=== PATIENT | male | born 1950 | race Caucasian/White ===

== ENCOUNTER → 2017-09-21 | Outpatient (CLI) | payer OTHER ==
[~2017-09-21] MED LIST: ACTOS45 MG PO; ALBUTEROL0.09 MG/A2 IH; AMARYL4 MG; HYDROCODONE BIT1 T11 PO; METFORMIN HCL500 MG PO; METFORMIN1000 MG; PERCOCET 325 MG1 TA5; PERCOCET 325 MG1 TA6 PO; SENNA5.6 MG PO; VICODIN 5/500 505 MG PO
== END | disposition home or self-care (01) ==
LOC: RAD 16:10
DX: J18.8 Other pneumonia, unspecified organism (principal); R06.02 Shortness of breath; R09.81 Nasal congestion; R07.89 Other chest pain; F17.200 Nicotine dependence, unspecified, uncomplicated

== ENCOUNTER 2017-09-25 12:08 | Emergency (ER) | payer OTHER ==
[~2017-09-25] VITALS: Ht 160 cm; Wt 79.8 kg
[2017-09-25 13:13] LABS: BASO % 0.2 % (0.0-1.0); EOS # 0.1 10*3/uL (0.0-0.4); EOS % 1.6 % (1.0-4.0); HEMATOCRIT 29.6 % (42.0-52.0); HEMOGLOBIN 9.5 g/dl (14.0-18.0); LYMPH # 0.9 10*3/uL (1.3-4.4); LYMPH % 14.4 % (27.0-41.0); MEAN CELL VOLUME 91.9 fl (80.0-94.0); MEAN CORPUSCULAR HGB 29.5 pg (27.0-31.0); MEAN CORPUSCULAR HGB CONC 32.1 g/dl (33.0-37.0); MEAN PLATELET VOLUME 9.4 fl (9.6-12.3); MONO # 0.5 10*3/uL (0.1-1.0); MONO % 8.2 % (3.0-9.0); NEUT # 4.7 10*3/uL (2.3-7.9); PLATELET COUNT AUTOMATED 253 10*3/uL (130-400); RED BLOOD COUNT 3.22 10*6/uL (4.50-5.90); WHITE BLOOD COUNT 6.2 10*3/uL (4.8-10.8)
[2017-09-25 13:30] LABS: ALBUMIN 2.9 gm/dl (3.1-4.5); CREATININE 2.18 mg/dL (0.70-1.30); POTASSIUM 5.3 mmol/L (3.5-5.1); TOTAL PROTEIN 7.5 gm/dL (6.4-8.2)
== END 2017-09-25 21:20 | disposition short-term general hospital (02) ==
LOC: ED 12:08
PROVIDERS: Emergency Medicine
DX: S50.311A Abrasion of right elbow, initial encounter (principal); S60.811A Abrasion of right wrist, initial encounter; S80.212A Abrasion, left knee, initial encounter; S00.31XA Abrasion of nose, initial encounter; R91.8 Other nonspecific abnormal finding of lung field; R60.0 Localized edema; F17.200 Nicotine dependence, unspecified, uncomplicated; Z95.5 Presence of coronary angioplasty implant and graft; Z79.899 Other long term (current) drug therapy; Z87.01 Personal history of pneumonia (recurrent); W19.XXXA Unspecified fall, initial encounter; Y93.89 Activity, other specified; Y92.89 Other specified places as the place of occurrence of the external cause; Y99.9 Unspecified external cause status

== ENCOUNTER → 2017-11-10 | Outpatient (CLI) | payer OTHER | END | disposition home or self-care (01) | LOC: WOUNDCARE 14:02 | DX: E11.622 Type 2 diabetes mellitus with other skin ulcer (principal); L97.821 Non-pressure chronic ulcer of other part of left lower leg limited to breakdown of skin; I87.312 Chronic venous hypertension (idiopathic) with ulcer of left lower extremity; C34.82 Malignant neoplasm of overlapping sites of left bronchus and lung; J44.9 Chronic obstructive pulmonary disease, unspecified; E78.5 Hyperlipidemia, unspecified; G47.00 Insomnia, unspecified; Z87.891 Personal history of nicotine dependence; Z95.5 Presence of coronary angioplasty implant and graft ==

== ENCOUNTER → 2017-11-17 | Outpatient (CLI) | payer OTHER | END | disposition home or self-care (01) | LOC: US 11-13 10:30 | DX: S81.802D Unspecified open wound, left lower leg, subsequent encounter (principal); C34.82 Malignant neoplasm of overlapping sites of left bronchus and lung; E11.622 Type 2 diabetes mellitus with other skin ulcer; I87.312 Chronic venous hypertension (idiopathic) with ulcer of left lower extremity; X58.XXXD Exposure to other specified factors, subsequent encounter ==

== ENCOUNTER → 2017-11-26 | Outpatient (CLI) | payer OTHER | END | disposition home or self-care (01) | LOC: WOUNDCARE 00:42 | DX: E11.622 Type 2 diabetes mellitus with other skin ulcer (principal); I87.312 Chronic venous hypertension (idiopathic) with ulcer of left lower extremity; L97.821 Non-pressure chronic ulcer of other part of left lower leg limited to breakdown of skin; C34.82 Malignant neoplasm of overlapping sites of left bronchus and lung; J44.9 Chronic obstructive pulmonary disease, unspecified; E78.5 Hyperlipidemia, unspecified; G47.00 Insomnia, unspecified; Z87.891 Personal history of nicotine dependence; Z95.5 Presence of coronary angioplasty implant and graft ==

== ENCOUNTER → 2017-12-03 | Outpatient (CLI) | payer MEDICAID ==
[~2017-12-03] MED LIST changes: +ACTOS45 M1 PO; +BREO ELLIPTA 11 EACH INH; +FENOFIBRATE130 M1 PO; +FLOMAX0.4 MG PO; +GOOD NEIGHBOR L10 MG PO; +HYDR25T PO; +LASIX40 MG PO; +LIPITOR20 MG PO; +METFORMIN1000 MG PO; +METOPROLOL SUCC50 M2 PO; +NICODERM CQ1 EACH T; +NICODERM CQ1 EACH TD; +NORCO 5-325 TA1 EACH PO; +PAROXETINE HCL20 MG PO; +PROVENTIL HFA6.7 GM IH; +PROVENTIL HFA6.7 GM INH; +ROBAFEN100 MG/51 PO; +SPIRIVA18 MCG PO; +VITAMIN D5000 UNIT PO; +ZESTORETIC 20-1 EACH PO
== END | disposition home or self-care (01) ==
LOC: WOUNDCARE 03:39
DX: I87.312 Chronic venous hypertension (idiopathic) with ulcer of left lower extremity (principal); E11.622 Type 2 diabetes mellitus with other skin ulcer; L97.821 Non-pressure chronic ulcer of other part of left lower leg limited to breakdown of skin; E78.5 Hyperlipidemia, unspecified; E43 Unspecified severe protein-calorie malnutrition; J44.9 Chronic obstructive pulmonary disease, unspecified; Z87.891 Personal history of nicotine dependence; Z85.118 Personal history of other malignant neoplasm of bronchus and lung; Z68.31 Body mass index [BMI] 31.0-31.9, adult

== ENCOUNTER → 2017-12-10 | Outpatient (CLI) | payer OTHER ==
[~2017-12-10] MED LIST changes: -ACTOS45 M1 PO; -BREO ELLIPTA 11 EACH INH; -FENOFIBRATE130 M1 PO; -FLOMAX0.4 MG PO; -GOOD NEIGHBOR L10 MG PO; -HYDR25T PO; -LASIX40 MG PO; -LIPITOR20 MG PO; -METFORMIN1000 MG PO; -METOPROLOL SUCC50 M2 PO; -NICODERM CQ1 EACH T; -NICODERM CQ1 EACH TD; -NORCO 5-325 TA1 EACH PO; -PAROXETINE HCL20 MG PO; -PROVENTIL HFA6.7 GM IH; -PROVENTIL HFA6.7 GM INH; -ROBAFEN100 MG/51 PO; -SPIRIVA18 MCG PO; -VITAMIN D5000 UNIT PO; -ZESTORETIC 20-1 EACH PO
== END | disposition home or self-care (01) ==
LOC: WOUNDCARE 00:30
DX: I87.312 Chronic venous hypertension (idiopathic) with ulcer of left lower extremity (principal); E11.622 Type 2 diabetes mellitus with other skin ulcer; L97.821 Non-pressure chronic ulcer of other part of left lower leg limited to breakdown of skin; J44.9 Chronic obstructive pulmonary disease, unspecified; E78.5 Hyperlipidemia, unspecified; Z85.118 Personal history of other malignant neoplasm of bronchus and lung; Z87.891 Personal history of nicotine dependence

== ENCOUNTER 2017-12-15 10:55 | Inpatient (IN) | payer MEDICAID ==
[~2017-12-15] VITALS: Ht 160 cm; Wt 75.8 kg
--- NOTE | ~2017-12-15 | PR ---
[place], [place] PROGRESS NOTE NAME: JONATHON BECERRA [facility] #: [id number] UNIT #: [id number] ROOM: 406 DOCTOR: ERICH KIRBY MD,KENNETH BIRTHDATE: [birth year] DOS: 12/18/2017 SUBJECTIVE: He has been comfortably sitting on the chair this morning. The patient denies any coughing, sputum expectoration, or chest pain. Denies symptoms of hemoptysis. OBJECTIVE: VITAL SIGNS: Normal temperature, respiratory rate 22, heart rate 120-113, blood pressure 129/58, pulse oxygen saturation on 2 liters 92% saturation. HEENT: Showed no new change. NECK: Supple. CARDIOVASCULAR: S1, S2 is audible. LUNGS: Noted without any wheeze or crackles. ABDOMEN: Soft, nontender. LABORATORY DATA: Culture of the sputum showed normal blanca. BMP: Glucose 250. BUN and creatinine were normal. Calcium is still elevated, the patient 10.6. IMPRESSION: Resolving hypercalcemia, paraneoplastic syndrome, lung cancer with hemoptysis, tracheobronchitis. The patient was also noted. PLAN OF MANAGEMENT: Continuation of the oxygen supplementation, bronchodilators and aggressive medical management hypercalcemia. Other supportive therapy, plan of management and care. Usual medical management and other treatments. KENNETH JUNG MD CM:PNTRANS [id number] KENNETH KIRBY MD 12/24/17 0855 interface
--- NOTE | ~2017-12-15 | PR ---
[place], [place] PROGRESS NOTE NAME: JONATHON BECERRA [facility] #: [id number] UNIT #: [id number] ROOM: 406 DOCTOR: ERICH KIRBY MD,KENNETH BIRTHDATE: [birth year] DOS: 12/17/2017 SUBJECTIVE: The patient has been noted comfortable at this time. He has a bronchoscopy completed yesterday for patient known with already diagnosed cancer of the lung. The patient which are described to be metastatic. He has not reported any further episodes of hemoptysis. Denies symptoms of chest pain. OBJECTIVE: VITAL SIGNS: For the patient, which was recorded showed the temperature is normal, respiratory rate of 18, heart rate 116, blood pressure is 128/66, pulse oxygen saturation on 2 liters nasal cannula 99% saturation. HEENT: No acute change. NECK: Supple. CARDIOVASCULAR: S1, S2 is audible. LUNGS: The patient was noted without any wheezing or crackles. Decreased breath sounds on the left lung. ABDOMEN: Soft, nontender. EXTREMITIES: Without any acute edema. LABORATORY DATA: Culture of the bronchial washing preliminary noted normal blanca. Gram stain, moderate white blood cell, few gram-positive cocci in pairs and clusters. CBC today, hemoglobin 8.8, hematocrit 28.5, platelet count was normal. IMPRESSION: The patient with metastatic cancer that has been known for this patient with paraneoplastic syndrome, hypercalcemia. Status post bronchoscopy for hemoptysis assessment no active bleeding was noted. PLAN OF TREATMENT: No changes in the therapy for the patient at the present time. Continuation of current previous treatment. The patient as in progress. Usual care, other supportive plan of management and treatments. KENNETH JUNG MD CM:PNTRANS [id number] KENNETH KIRBY MD 12/24/17 0854 interface
--- NOTE | ~2017-12-15 | CON ---
[place], [place] REPORT OF CONSULTATION [id number] UNIT #: [id number] ROOM: 406 DOCTOR: ERICH KIRBY MD,KENNETH BIRTHDATE: [birth year] DOS: 12/16/2017 REQUESTING PHYSICIAN: Shahzad Avitia MD REASON FOR CONSULTATION: To assess the patient for current diagnosis of lung cancer stage 4 with hemoptysis. The patient is noted to be an extremely poor historian with history noted quite limited at this time. Some of the history has reviewed current documentation done by the other physicians assessment and notes. HISTORY OF PRESENT ILLNESS: The patient presented to the Emergency Room, hospitalized on 12/15/2017 as the patient was reported having symptoms of hemoptysis at home intermittently. The symptoms has been noted with gradual increase for this patient and getting worse. The patient denies any symptoms of chest tightness, but complained of chest pain and also noted significant shortness of breath. The patient stated that he has coughed up couple of times blood. The patient is coughing up blood in small quantity. He was also noted symptoms of wheezing. The patient was also noted chest pain, which are described in the left side of the chest intermittently, moderate severity without radiation, described to be sharp at times. REVIEW OF SYSTEMS: PSYCHIATRIC: Very limited for the patient was completed. CONSTITUTIONAL: He does complain of fatigue without any symptoms of fever or chills. EYES: Denies any burning, redness, or discharge. ENT: Sore throat, otalgia, postnasal drainage, but noted with hoarseness. CARDIOVASCULAR: Denies any anginal pain, edema, pain or palpitation. GASTROINTESTINAL: Denies dysphagia, nausea, vomiting, diarrhea, abdominal pain, hematemesis, melena, hematochezia. Has been noted with a recent weight loss most likely related to malignancy, but could not quantify the exact weight loss. GENITOURINARY: No dysuria, suprapubic pain, or hematuria. MUSCULOSKELETAL: No acute joint pain, redness, or tenderness. SKIN: Denies any abnormal lesions or rashes. CENTRAL NERVOUS SYSTEM: The patient denies any dizziness, headache, diplopia, syncopal episode, or seizures. Remaining systems were reviewed with the patient, they were noted all negative. PAST MEDICAL HISTORY: 1. Known with history of diagnosis of metastatic lung cancer reported by the patient, but the details were unknown. Stated diagnosis was made in [facility] what described by the patient is fibrobronchoscopy. 2. Gastroesophageal reflux disease. 3. Hyperlipidemia. 4. Osteoarthritis. 5. Type 2 diabetes mellitus. 6. Nephrolithiasis. [place], [place] REPORT OF CONSULTATION NAME: JONATHON BECERRA UNIT #: [id number] ROOM: 406 DOCTOR: KENNETH RIVERA MD BIRTHDATE: [birth year] PAST SURGICAL HISTORY: Most likely is reported as fiberoptic bronchoscopy for the patient done at [facility]. FAMILY HISTORY: Both parents have been and history was unknown by the patient. MEDICATIONS: Reported as albuterol, Proventil HFA, atorvastatin, Breo Ellipta, Lasix, [place], lisinopril, hydrochlorothiazide, loratadine, metformin, nicotine patches, Actos, and Flomax. DRUG ALLERGIES: No known drug allergies. PHYSICAL EXAMINATION: GENERAL: This is a 67-year-old while male noted with obvious mild hoarseness at rest with mild shortness of breath at rest was also noted. The patient was resting and lying in the bed. Height of 5 feet 3 inches, weight of 167 pounds, BMI 29.5. VITAL SIGNS: For the patient which has been recorded showed the temperature noted as normal, respiratory rate of 18-22, heart rate of 110-103, blood pressure 127/54 to 116/40. Pulse oxygen saturation of the patient on 2 liter nasal cannula 95% saturation. HEENT: Examination shows head was atraumatic. Eyes nonicterus. NECK: Supple. CARDIOVASCULAR: S1, S2 audible without any tachycardia and added sounds. LUNGS: Moderate severe reduced breath sounds noted in the lungs bilaterally with scattered expiratory wheezing without any crackles. ABDOMEN: Soft and nontender. Bowel sounds present. EXTREMITIES: Without any edema, clubbing, or cyanosis. VISIBLE SKIN: No lesions or rashes. MUSCULOSKELETAL: Without any acute deformities. CENTRAL NERVOUS SYSTEM: Cranial nerves 2-12 intact. MUSCULOSKELETAL: No focal deficit. LABORATORY DATA: CBC was done yesterday; hemoglobin 9.1, hematocrit 29.0, WBC count normal, and platelet count was normal. Lactic acid 2.1. The PT and PTT was noted as normal. CMP yesterday; BUN 18, creatinine 1.44. Sodium 135. BNP was noted 206. ESR was noted at 130 yesterday. Lactic acid fall up to 2.0. CBC of the patient this morning; hemoglobin 8.4, hematocrit 27.7, and platelet count was normal. BMP of the patient this morning; BUN 20 and creatinine 1.55. Calcium elevated at 11.5. RADIOLOGIC DATA: The review of the chest x-ray of the patient, enlarging mass for this patient was noted as compared to previous study on 09/25/2017. Chest x-ray review, currently noted for this patient 9 cm in the craniocaudal dimension in the left side. The patient had CT scan of the chest, which was done with contrast reviewed shows evidence of 8.5 x 6.5 cm mass, which increased patient from previous size of 5.2 x 5.8 cm in size. Extension was noted in the left lateral chest wall erosion of the left 4th, 5th and 6th rib. The mass was also abutting the left hilar area of the patient with area of atelectasis in the left lower lobe was also noted. Small left-sided pleural fluid was seen. [place], [place] REPORT OF CONSULTATION NAME: JONATHON BECERRA UNIT #: [id number] ROOM: 406 [facility] [birth year] IMPRESSION: 1. The patient currently admitted to the hospital with hemoptysis, most likely related to endobronchial lesion for the current lung cancer with bleeding possibly originating from the left side of the lung for this patient endobronchial lesion very likely resulting in intermittent hemoptysis. 2. Metastatic cancer of the patient. 3. Paraneoplastic syndrome and hypercalcemia. Hypercalcemia most commonly seen for the patient with squamous cell and/or small cell cancer for the patient metastatic malignancy. 4. Acute kidney injury secondary to hypercalcemia and excessive diuresis. 5. Pain for the patient secondary to involvement of the rib with malignant process of the patient's lung cancer. 6. The patient with ongoing acute exacerbation of chronic obstructive pulmonary disease as well. The patient with history of allergic rhinitis, hypertension, and 7. type 2 diabetes mellitus. 8. History of essential hypertension. PLAN OF MANAGEMENT: Aggressive hydration for the patient for the hypercalcemia to be done. The patient has been ordered the bronchoscopy to be done today. The risk and benefits of procedure have been discussed in detail with the patient and he accepted that. He has already made n.p.o. past midnight for the procedure to be done today. Bronchodilators administration, use of intravenous steroids to be added to the treatment for the patient to help improve the current wheezing and exacerbation of COPD. I do not believe that the patient has any postobstructive pneumonia or bronchitis which is acute cannot be completely excluded. Diagnostic bronchoscopy today for the patient assessing endobronchial lesion and manage hemoptysis according to the assessment. Solu-Medrol for the patient will be added to the treatment. Continue adequate pain control. The patient was also planned for MediPort insertion for use of the chemotherapy. Monitoring of the calcium level for the patient to be continued. Free ionized calcium level will be ordered to be done to exactly assess the patient's calcium level. Other supportive therapy, plan and management to be continued. Usual care. Other additional treatment changes to be made for the patient based on progression of the illness. Bronchodilator will be given every 4 hours for the bronchospasm management. Additional treatment changes continued to be made based on the progression of the illness during recurrent hospitalization. The bronchial washing will be also sent for the patient cultures as well. [place], [place] REPORT OF CONSULTATION NAME: JONATHON BECERRA [facility] UNIT #: [id number] ROOM: [facility] DOCTOR: KENNETH RIVERA MD BIRTHDATE: [birth year] KENNETH JUNG MD CM:CONSTR:REPORT OF CONSULTATION 1353 12/22/17 8388 interface
--- NOTE | ~2017-12-15 | PROC NOTE ---
[place], [place] PROCEDURE NOTE NAME: JONATHON BECERRA UNIT #: [id number] ROOM: 406 DOCTOR: ERICH KIRBY MD,KENNETH BIRTHDATE: [birth year] DOS: 12/16/2017 PREOPERATIVE DIAGNOSIS: Acute hemoptysis current known lung cancer, which was untreated. POSTOPERATIVE DIAGNOSIS: No active bleeding was noted nor hemoptysis evidence, however, the patient noted with large endobronchial lesion in the left upper lobe. PROCEDURE DESCRIPTION: Informed consent obtained for the patient. The patient brought to the OR and placed in supine. Conscious sedation was administered by the Anesthesia Department. After achieving proper sedation, airway introduced into the mouth. Bronchoscope advanced into the airway into laryngeal area. Epiglottis and vocal cord were seen. Vocal cord movement noted with a possibility of paralysis for the patient left vocal cord. The bronchoscope and vocal cord and tracheal lumen. Tracheal lumen was noted with a small to moderate mucus secretion, which was suctioned out with the help of normal saline wash, sent for culture. The lito was noted as well. Right upper, right middle and right lower lobe bronchial opening noted moderate mucus impaction of normal saline wash. Left main stem bronchus noted patent. Complete occlusion almost of left upper lung and lingular opening was noted. Endobronchial lesions were noted. Mucosa appeared to be friable. A 1:10,000 epinephrine was lavaged in that area to prevent any bleeding. Procedure well tolerated by the patient without any complication. Postoperative finding will be discussed with the patient once the patient recovers from effects of acute sedation. KENNETH JUNG MD CM:PROCNOTE:PROCEDURE NOTE 1355 1950 KENNETH KIRBY MD
--- NOTE | ~2017-12-15 | PR ---
[place], [place] PROGRESS NOTE [id number] #: [id number] ROOM: 406 DOCTOR: ROSALINDA AVENDANO MD BIRTHDATE: [birth year] DOS: 12/18/2017 SUBJECTIVE: The patient is doing better. He got a PICC line placed. His calcium has gone down. Mediport attempt was failed. REVIEW OF SYSTEMS HEENT: No trouble swallowing. No double vision. No loss of vision. No pain. ENT AND RESPIRATORY: No wheeze. No change in voice. No cough. No shortness of breath. No coughing up blood. No epistaxis. CARDIOLOGIC: No chest pain. No dizziness. No irregular heartbeat. No leg edema. No palpitations. No shortness of breath. HEMATOLOGIC AND LYMPH: No past transfusion. No fatigue. No loss of appetite. No easy bruising. GASTROENEROLOGIC: No change in bowel habits. No vomiting blood. No abdominal cramping. No nausea. No vomiting. No diarrhea. No constipation. No blood in stool. MALE REPRODUCTIVE: No testicular pain. No penile discharge. MUSCULOSKELETAL: No back pain. No muscle pain or weakness. No tingling/numbness. UROLOGIC: No pain with urination. No difficulty urinating. No frequent urination. NEUROLOGIC: No burning pain in feet. No trouble with coordination. No loss of consciousness. No headache. No tingling/numbness. No memory loss. PHYSICAL EXAMINATION GENERAL: Pleasant gentleman, in no apparent distress. VITAL SIGNS: Stable. He is afebrile. HEENT: Normocephalic, atraumatic NECK AND THYROID: Supple. No JVD, thyromegaly, or lymphadenopathy. HEART: Normal S1, S2. Regular rate and rhythm. LUNGS: Clear to auscultation and percussion. ABDOMEN: Soft. Nontender, nondistended. Bowel sounds present. EXTREMITIES: Normal ROM. No clubbing. No edema. LABORATORY DATA: White count of 9.7, hemoglobin of 8.8, hematocrit 28.5, platelet count of 351. EGFR of 59. Sodium 138, potassium 4.1, chloride 102, bicarbonate 28, calcium at 10.6. ASSESSMENT: 1. Metastatic lung cancer. 2. Hypercalcemia, which is resolving. 3. Pleural effusion. 4. Normocytic anemia. PLAN: The patient's calcium is decreased. We will continue Miacalcin, add some fluids. The patient will be discharged home. We will start him on chemotherapy next week. I had a detailed discussion with the patient, who seemed to understand. Ample time was given to the patient to ask me questions. [place], [place] PROGRESS NOTE NAME: JONATHON BECERRA UNIT #: [id number] ROOM: 406 DOCTOR: ROSALINDA AVENDANO MD BIRTHDATE: [birth year] ROSALINDA AVENDANO MD CM:PNTRANS [id number] 2 ROSALINDA AVENDANO MD 12/19/17 0120 interface
--- NOTE | ~2017-12-15 | CON ---
[place], [place] REPORT OF CONSULTATION NAME[id number] UNIT #: [id number] ROOM: 406 DOCTOR: ROSALINDA AVENDANO MD BIRTHDATE: [birth year] DOS: 12/16/2017 HISTORY OF PRESENT ILLNESS: The is a pleasant 67-year-old gentleman with a history of stage IV nonsmall cell lung cancer called me that he was having hemoptysis, subsequently was advised to go to the hospital and continue for further evaluation and management. As per the patient, he coughed up clot. He was diagnosed with lung cancer quite sometime back and was in [place] for sometime and subsequently he came to see me about 3-4 weeks ago. He is supposed to get a MediPort on Thursday. PAST MEDICAL HISTORY: Known history of stage 4 nonsmall cell lung cancer, diabetic ulcer of the roberts, GERD, hyperlipidemia, lung cancer, osteoarthritis, and type 2 diabetes. PAST SURGICAL HISTORY: No surgical history. SOCIAL HISTORY: No drinking of alcohol, former smoker. FAMILY HISTORY: Mother , father . ALLERGIES: No allergies. MEDICATIONS: Albuterol, Lipitor, Breo Ellipta, Lasix, Aromasin, Zestoretic, metformin, Nicoderm, Actos, and Flomax. RADIOLOGY: Chest x-ray showed enlarging left lung mass, small to moderate left pleural effusion, which is new. REVIEW OF SYSTEMS CONSTITUTIONAL: No chills. No fatigue. No fever. No loss of appetite. No night sweats. No weakness. No weight loss. HEENT: No trouble swallowing. No loss of smell. No loss of hearing. No double vision. No pain. No discharge. ENT AND RESPIRATORY: No wheeze. No sore throat. No change in voice. No hearing loss. No nose bleed. No cough. No trouble breathing through nose. No shortness of breath. No coughing up blood. No epistaxis. CARDIOVASCULAR: No chest pain. No dizziness. No irregular heartbeat. No leg edema. No pain in legs while walking. No palpitations. No shortness of breath. DERMATOLOGIC: No acne. No hives. No laceration. No mole. No rash. ENDOCRINE: No cold intolerance. No diabetes. No fatigue. No hot flashes. No polydipsia. No polyuria. No urinating frequently. No weight loss. HEMATOLOGIC AND LYMPH: No fatigue. No easy bruising. GASTROENTEROLOGIC: No change in bowel habits. No indigestion. No frequent bloating. No vomiting blood. No abdominal cramping. No nausea. No heartburn. No vomiting. No abdominal pain. No dysphagia. No diarrhea. No constipation. No blood in stool. MALE REPRODUCTIVE: No testicular pain. No difficulty with erection. No diminished sexual drive. No penile discharge. MUSCULOSKELETAL: No back pain. No muscle pain or weakness. No neck pain. No [place], [place] REPORT OF CONSULTATION NAME: JONATHON BECERRA UNIT #: [id number] ROOM: [facility] DOCTOR: ROSALINDA AVENDANO MD BIRTHDATE: [birth year] tingling/numbness. No swelling/bruising. No osteoporosis treatment. OPTHALMOLOGIC: No double vision. No diminished vision. No loss of vision. UROLOGIC: No dysuria. No frequent nighttime urination. No pain with urination. No difficulty urinating. No blood in urine. No frequent urination. No urinary incontinence. NEUROLOGIC: No loss of sensation in specific body area. No vertigo. No burning pain in feet. No trouble with balance. No trouble with coordination. No loss of consciousness. No loss of feeling/power. No confusion. No headache. No tingling/numbness. PSYCHOLOGIC: No tinnitus. No headaches. No shortness of breath. No weight decrease. No nausea. No vomiting. No abdominal discomfort. No constipation. No diarrhea. No depression. No anxiety. PHYSICAL EXAMINATION: GENERAL: Pleasant gentleman in no apparent distress. VITAL SIGNS: Stable. Afebrile. HEENT: Oral mucosa appears intact. The external ears are normal in appearance. Nares are patent without lesions, exudates, erythema, or inflammation. Tongue is symmetrical. Uvula is midline. NECK AND THYROID: Neck supple without palpable masses. Trachea is midline. No thyromegaly. No carotid bruit or JVD. BREASTS: Normal. Nipples unremarkable. No drainage. No lumps felt on either side. HEART: Normal S1, S2, without significant murmur, rub, or gallop. LUNGS: Clear to auscultation and percussion with good air entry bilaterally. The patient is breathing easily without the use of accessory muscles. Diaphragmatic excursions are intact. ABDOMEN: No costovertebral angle tenderness. Soft. No organomegaly or masses. Nontender. No hernias present. Liver and spleen are not palpable. LYMPHATIC: No adenopathy noted in the cervical, supraclavicular, axillary, or inguinal regions. NEUROLGIC: Nonfocal. Oriented to person, place, and time. MENTAL STATUS: Appropriate for mood and affect. PERIPHERAL PULSES: No varicosities. Femoral and pedal pulses are palpable. EXTREMITIES: Without cyanosis, clubbing, or edema. No gross anomalies. LABORATORY DATA: From 12/15/2017, sodium 135, potassium 4.3, chloride 95, bicarbonate 32, creatinine of 1.44, EGFR is 49, calcium is 12.2. White count 8.8, hemoglobin 9.1, hematocrit 29.0, and platelet count of 361,000. ASSESSMENT: 1. Stage IV nonsmall cell lung cancer. 2. Hypercalcemia. 3. Anemia of neoplastic disorder. 4. Hemoptysis. 5. Pleural effusion. PLAN: The patient went for bronchoscopy, we will discuss with Dr. Bai about the bronchoscopy results in the meantime, MediPort was tried by the surgeon, but it failed subsequently I have been asked to put him PICC line. The patient was [place], [place] REPORT OF CONSULTATION NAME: JONATHON BECERRA UNIT #: [id number] ROOM: [facility] DOCTOR: ROSALINDA AVENDANO MD BIRTHDATE: [birth year] also started on bisphosphonate as well as Miacalcin ____ IV fluids and Lasix and calcium will be monitored very closely. The patient's Lovenox has been held and was put on SCDs and LILLIE hose for DVT prophylaxis. We will continue possible antibiotic. Blood cultures be done. We will keep a close watch at this time. If the counts drop further, then further intervention with a close followup. I had detailed discussion with the patient about it. Ample time was given to the patient to ask me questions. Thanks for consulting and letting me participate in the care of this patient. ROSALINDA AVENDANO MD CM:CONSTR:REPORT OF CONSULTATION 1553 12/17/17 0021 interface
[2017-12-15 11:06] VITALS: BP 122/62
[2017-12-15] MEDS ORDERED: ACTOS45 M1 PO (11:17)
[2017-12-15] MEDS ORDERED: METFORMIN1000 MG PO (11:17)
[2017-12-15] MEDS ORDERED: LIPITOR20 MG PO (11:18)
[2017-12-15] MEDS ORDERED: VITAMIN D5000 UNIT PO (11:18)
[2017-12-15] MEDS ORDERED: LASIX40 MG PO (11:18)
[2017-12-15] MEDS ORDERED: FLOMAX0.4 MG PO (11:18)
[2017-12-15] MEDS ORDERED: PROVENTIL HFA6.7 GM IH (11:19)
[2017-12-15] MEDS ORDERED: NORCO 5-325 TA1 EACH PO (11:20)
[2017-12-15] MEDS ORDERED: NICODERM CQ1 EACH TD (11:20)
[2017-12-15 11:27] LABS: BASO % 0.5 % (0.0-1.0); EOS # 0.3 10*3/uL (0.0-0.4); HEMOGLOBIN 9.1 g/dl (14.0-18.0); LYMPH # 0.6 10*3/uL (1.3-4.4); LYMPH % 6.8 % (27.0-41.0); MEAN CORPUSCULAR HGB 27.9 pg (27.0-31.0); MEAN CORPUSCULAR HGB CONC 31.4 g/dl (33.0-37.0); MEAN PLATELET VOLUME 8.7 fl (9.6-12.3); MONO # 0.6 10*3/uL (0.1-1.0); MONO % 7.3 % (3.0-9.0); NEUT # 7.2 10*3/uL (2.3-7.9); NEUT % 82.1 % (47.0-73.0); PLATELET COUNT AUTOMATED 361 10*3/uL (130-400); RED BLOOD COUNT 3.26 10*6/uL (4.50-5.90); RED CELL DISTRI WIDTH 15.9 % (0-14.5); WHITE BLOOD COUNT 8.8 10*3/uL (4.8-10.8)
[2017-12-15 11:35] LABS: ACT PARTIAL THROMBO TIME 23.4 SECONDS (20.8-31.5); INTERNATIONAL NORM RATIO 1.1 (2.0-3.5)
[2017-12-15 11:41] LABS: ALBUMIN 2.4 gm/dl (3.1-4.5); ALKALINE PHOSPHATASE 74 U/L (45-117); BUN 18 mg/dl (7-24); CHLORIDE 95 mmol/L (98-107); CREATININE 1.44 mg/dL (0.70-1.30); LIPASE 48 U/L (73-393); POTASSIUM 4.3 mmol/L (3.5-5.1); SGOT/AST 9 IU/L (3-35); SGPT/ALT 8 U/L (12-78); SODIUM 135 mmol/L (136-145); TOTAL PROTEIN 7.3 gm/dL (6.4-8.2)
[2017-12-15 11:42] LABS: TROPONIN I < 0.015 ng/ml (<0.045)
[2017-12-15 12:20] VITALS: BP 101/52
[2017-12-15 13:28] VITALS: BP 154/96
[2017-12-15] MEDS ORDERED: GOOD NEIGHBOR L10 MG PO (13:35)
[2017-12-15] MEDS ORDERED: ZESTORETIC 20-1 EACH PO (13:50)
[2017-12-15] MEDS ORDERED: BREO ELLIPTA 11 EACH INH (13:52)
[2017-12-15 14:13] VITALS: BP 140/53
[2017-12-15] MEDS ORDERED: ROBAFEN100 MG/51 PO (14:50)
[2017-12-15 16:00] VITALS: BP 109/48
[2017-12-15 20:00] VITALS: BP 109/49
[2017-12-16] VITALS (9 sets, daily range): BP systolic 100–131; BP diastolic 40–58
[2017-12-16 07:12] LABS: BASO % 0.4 % (0.0-1.0); EOS # 0.1 10*3/uL (0.0-0.4); EOS % 1.3 % (1.0-4.0); HEMATOCRIT 27.7 % (42.0-52.0); HEMOGLOBIN 8.4 g/dl (14.0-18.0); LYMPH # 0.9 10*3/uL (1.3-4.4); LYMPH % 8.1 % (27.0-41.0); MEAN CELL VOLUME 89.4 fl (80.0-94.0); MEAN CORPUSCULAR HGB 27.1 pg (27.0-31.0); MEAN CORPUSCULAR HGB CONC 30.3 g/dl (33.0-37.0); MEAN PLATELET VOLUME 8.9 fl (9.6-12.3); MONO # 1.1 10*3/uL (0.1-1.0); MONO % 10.8 % (3.0-9.0); NEUT # 8.3 10*3/uL (2.3-7.9); PLATELET COUNT AUTOMATED 338 10*3/uL (130-400); RED CELL DISTRI WIDTH 16.2 % (0-14.5); WHITE BLOOD COUNT 10.5 10*3/uL (4.8-10.8)
[2017-12-16 07:29] LABS: CREATININE 1.55 mg/dL (0.70-1.30); PHOSPHOROUS 3.2 mg/dL (2.5-4.9); POTASSIUM 4.1 mmol/L (3.5-5.1)
[2017-12-16 07:40] LABS: FREE T4 1.51 ng/dl (0.76-1.46); THYROID STIM HORMONE (HS) 0.813 uIU/ml (0.358-4.75)
[2017-12-16 08:30] LABS: VITAMIN D, 25-HYDROXY 54.6 ng/mL (30-100)
[2017-12-17] VITALS: BP 132/55
[2017-12-17 06:30] LABS: HEMATOCRIT 28.5 % (42.0-52.0); HEMOGLOBIN 8.8 g/dl (14.0-18.0); MEAN CELL VOLUME 88.5 fl (80.0-94.0); MEAN CORPUSCULAR HGB 27.3 pg (27.0-31.0); MEAN CORPUSCULAR HGB CONC 30.9 g/dl (33.0-37.0); MEAN PLATELET VOLUME 8.7 fl (9.6-12.3); PLATELET COUNT AUTOMATED 351 10*3/uL (130-400); RED BLOOD COUNT 3.22 10*6/uL (4.50-5.90); RED CELL DISTRI WIDTH 16.3 % (0-14.5); WHITE BLOOD COUNT 9.7 10*3/uL (4.8-10.8)
[2017-12-17 06:47] LABS: BUN 16 mg/dl (7-24); CHLORIDE 102 mmol/L (98-107); CREATININE 1.15 mg/dL (0.70-1.30); IRON 22 ug/dL (65-175); POTASSIUM 4.1 mmol/L (3.5-5.1); SODIUM 137 mmol/L (136-145); TOTAL IRON BINDING CAPACITY 167 ug/dl (250-450)
[2017-12-17 07:02] LABS: PLATELET SUFFICIENCY NORMAL (NORMAL); POLYCHROMASIA SLIGHT; TOTAL CELLS COUNTED 100 #CELLS
[2017-12-17 07:43] LABS: FERRITIN 346.5 ng/mL (22.0-322.0)
[2017-12-17 08:00] VITALS: BP 128/66
[2017-12-17 12:00] VITALS: BP 118/60
[2017-12-17 15:06] LABS: ACID FAST SPEC PROCESSING Concentration (.)
[2017-12-17 16:00] VITALS: BP 130/69
[2017-12-17] MEDS ORDERED: METOPROLOL SUCC50 M2 PO (17:00)
[2017-12-17] MEDS ORDERED: FENOFIBRATE130 M1 PO (17:01)
[2017-12-17] MEDS ORDERED: PAROXETINE HCL20 MG PO (17:04)
[2017-12-17] MEDS ORDERED: HYDR25T PO (17:06)
[2017-12-17] MEDS ORDERED: SPIRIVA18 MCG PO (17:07)
[2017-12-17] MEDS ORDERED: PROVENTIL HFA6.7 GM INH (17:13)
[2017-12-17] MEDS ORDERED: BREO ELLIPTA 11 EACH INH (17:14)
[2017-12-17] MEDS ORDERED: LASIX40 MG PO (17:14)
[2017-12-17] MEDS ORDERED: ZESTORETIC 20-1 EACH PO (17:15)
[2017-12-17] MEDS ORDERED: NICODERM CQ1 EACH T (17:15)
[2017-12-17] MEDS ORDERED: ACTOS45 M1 PO (17:17)
[2017-12-17 20:00] VITALS: BP 122/53
[2017-12-18] VITALS: BP 116/52; BP 129/51
[2017-12-18 08:00] VITALS: BP 129/58
[2017-12-18 08:22] LABS: BUN 18 mg/dl (7-24); CHLORIDE 102 mmol/L (98-107); CREATININE 1.22 mg/dL (0.70-1.30); POTASSIUM 4.1 mmol/L (3.5-5.1); SODIUM 138 mmol/L (136-145)
[2017-12-18 12:00] VITALS: BP 122/59
[2017-12-18 16:00] VITALS: BP 129/58
[2017-12-19] MEDS ORDERED: NICODERM CQ1 EACH TD (15:52)
[2017-12-19] MEDS ORDERED: ZESTORETIC 20-1 EACH PO (15:52)
== END 2017-12-18 17:17 | disposition home or self-care (01) | DRG 180 ==
LOC: ED 10:55 → 4E 12:53 → EDHOLD 12:53 → 4E 13:17
PROVIDERS: Emergency Medicine; Internal Medicine Critical Care Medicine; Internal Medicine Hematology & Oncology; Student in an Organized Health Care Education/Training Program
PROC: 05JY3ZZ Inspection of Upper Vein, Percutaneous Approach (ICD-10-PCS; principal; 2017-12-16)
PROC: 0BC98ZZ Extirpation of Matter from Lingula Bronchus, Via Natural or Artificial Opening Endoscopic (ICD-10-PCS; 2017-12-16)
PROC: 0BC48ZZ Extirpation of Matter from Right Upper Lobe Bronchus, Via Natural or Artificial Opening Endoscopic (ICD-10-PCS; 2017-12-16)
PROC: 0BC88ZZ Extirpation of Matter from Left Upper Lobe Bronchus, Via Natural or Artificial Opening Endoscopic (ICD-10-PCS; 2017-12-16)
PROC: 0BC58ZZ Extirpation of Matter from Right Middle Lobe Bronchus, Via Natural or Artificial Opening Endoscopic (ICD-10-PCS; 2017-12-16)
PROC: 0BC38ZZ Extirpation of Matter from Right Main Bronchus, Via Natural or Artificial Opening Endoscopic (ICD-10-PCS; 2017-12-16)
PROC: 0BC78ZZ Extirpation of Matter from Left Main Bronchus, Via Natural or Artificial Opening Endoscopic (ICD-10-PCS; 2017-12-16)
PROC: 0BC68ZZ Extirpation of Matter from Right Lower Lobe Bronchus, Via Natural or Artificial Opening Endoscopic (ICD-10-PCS; 2017-12-16)
PROC: 0BCB8ZZ Extirpation of Matter from Left Lower Lobe Bronchus, Via Natural or Artificial Opening Endoscopic (ICD-10-PCS; 2017-12-16)
PROC: 0BC18ZZ Extirpation of Matter from Trachea, Via Natural or Artificial Opening Endoscopic (ICD-10-PCS; 2017-12-16)
PROC: 02HV33Z Insertion of Infusion Device into Superior Vena Cava, Percutaneous Approach (ICD-10-PCS; 2017-12-17)
PROC: B548ZZA Ultrasonography of Superior Vena Cava, Guidance (ICD-10-PCS; 2017-12-17)
PROC: B5181ZA Fluoroscopy of Superior Vena Cava using Low Osmolar Contrast, Guidance (ICD-10-PCS; 2017-12-17)
DX: C34.32 Malignant neoplasm of lower lobe, left bronchus or lung (principal); N17.0 Acute kidney failure with tubular necrosis; E43 Unspecified severe protein-calorie malnutrition; R65.11 Systemic inflammatory response syndrome (SIRS) of non-infectious origin with acute organ dysfunction; E87.2 Acidosis; J90 Pleural effusion, not elsewhere classified; E87.1 Hypo-osmolality and hyponatremia; L97.929 Non-pressure chronic ulcer of unspecified part of left lower leg with unspecified severity; J44.1 Chronic obstructive pulmonary disease with (acute) exacerbation; I10 Essential (primary) hypertension; E87.8 Other disorders of electrolyte and fluid balance, not elsewhere classified; D63.0 Anemia in neoplastic disease; E83.52 Hypercalcemia; E11.622 Type 2 diabetes mellitus with other skin ulcer; E11.65 Type 2 diabetes mellitus with hyperglycemia; R70.0 Elevated erythrocyte sedimentation rate; K21.9 Gastro-esophageal reflux disease without esophagitis; M19.90 Unspecified osteoarthritis, unspecified site; E78.5 Hyperlipidemia, unspecified; E53.8 Deficiency of other specified B group vitamins; Z87.891 Personal history of nicotine dependence; Z84.89 Family history of other specified conditions; Z68.29 Body mass index [BMI] 29.0-29.9, adult; Z79.84 Long term (current) use of oral hypoglycemic drugs; Z79.899 Other long term (current) drug therapy; Z87.442 Personal history of urinary calculi

== ENCOUNTER → 2018-01-22 | Outpatient (CLI) | payer OTHER ==
[~2018-01-22] MED LIST changes: +ACTOS45 M1 PO; +BREO ELLIPTA 11 EACH INH; +FENOFIBRATE130 M1 PO; +FLOMAX0.4 MG PO; +GOOD NEIGHBOR L10 MG PO; +HYDR25T PO; +LASIX40 MG PO; +LIPITOR20 MG PO; +METFORMIN1000 MG PO; +METOPROLOL SUCC50 M2 PO; +NICODERM CQ1 EACH T; +NICODERM CQ1 EACH TD; +NORCO 5-325 TA1 EACH PO; +PAROXETINE HCL20 MG PO; +PROVENTIL HFA6.7 GM IH; +PROVENTIL HFA6.7 GM INH; +ROBAFEN100 MG/51 PO; +SPIRIVA18 MCG PO; +VITAMIN D5000 UNIT PO; +ZESTORETIC 20-1 EACH PO
[2018-01-22 10:51] LABS: BASO % 0.4 % (0.0-1.0); EOS # 0.3 10*3/uL (0.0-0.4); EOS % 5.1 % (1.0-4.0); HEMATOCRIT 25.1 % (42.0-52.0); HEMOGLOBIN 7.8 g/dl (14.0-18.0); LYMPH # 0.6 10*3/uL (1.3-4.4); LYMPH % 10.5 % (27.0-41.0); MEAN CELL VOLUME 83.1 fl (80.0-94.0); MEAN CORPUSCULAR HGB 25.8 pg (27.0-31.0); MEAN CORPUSCULAR HGB CONC 31.1 g/dl (33.0-37.0); MEAN PLATELET VOLUME 8.6 fl (9.6-12.3); MONO # 0.1 10*3/uL (0.1-1.0); MONO % 1.5 % (3.0-9.0); NEUT # 4.4 10*3/uL (2.3-7.9); NEUT % 82.1 % (47.0-73.0); PLATELET COUNT AUTOMATED 246 10*3/uL (130-400); RED BLOOD COUNT 3.02 10*6/uL (4.50-5.90); RED CELL DISTRI WIDTH 16.6 % (0-14.5); WHITE BLOOD COUNT 5.3 10*3/uL (4.8-10.8)
[2018-01-22 11:19] LABS: ALBUMIN 2.3 gm/dl (3.1-4.5); CREATININE 1.45 mg/dL (0.70-1.30); POTASSIUM 3.4 mmol/L (3.5-5.1); TOTAL PROTEIN 6.8 gm/dL (6.4-8.2)
== END | disposition home or self-care (01) ==
LOC: LAB 09:30
PROVIDERS: Internal Medicine Hematology & Oncology
DX: C34.12 Malignant neoplasm of upper lobe, left bronchus or lung (principal)

== ENCOUNTER → 2018-01-29 | Outpatient (CLI) | payer OTHER ==
[2018-01-29] VITALS (8 sets, daily range): BP systolic 96–112; BP diastolic 50–70
[~2018-01-29] MED LIST changes: +LEVAQUIN750 M1 PO; +PREDNISONE10 MG PO; +VITAMIN D5000 UNI1 PO
[2018-01-29 10:47] LABS: HEMOGLOBIN 7.9 g/dl (14.0-18.0); MEAN CELL VOLUME 83.6 fl (80.0-94.0); MEAN CORPUSCULAR HGB 25.4 pg (27.0-31.0); MEAN CORPUSCULAR HGB CONC 30.4 g/dl (33.0-37.0); MEAN PLATELET VOLUME 10.1 fl (9.6-12.3); RED BLOOD COUNT 3.11 10*6/uL (4.50-5.90); RED CELL DISTRI WIDTH 15.8 % (0-14.5)
[2018-01-29 10:49] LABS: PLATELET COUNT AUTOMATED 19 10*3/uL (130-400)
[2018-01-29 10:50] LABS: WHITE BLOOD COUNT 1.9 10*3/uL (4.8-10.8)
[2018-01-29 11:07] LABS: PLATELET SUFFICIENCY LOW (NORMAL); TOTAL CELLS COUNTED 100 #CELLS
[2018-01-29 11:08] LABS: ROULEAUX SLIGHT
[2018-01-29 16:30] LABS: HEMATOCRIT 31.2 % (42.0-52.0); HEMOGLOBIN 9.8 g/dl (14.0-18.0); MEAN CELL VOLUME 84.1 fl (80.0-94.0); MEAN CORPUSCULAR HGB 26.4 pg (27.0-31.0); MEAN CORPUSCULAR HGB CONC 31.4 g/dl (33.0-37.0); MEAN PLATELET VOLUME 11.1 fl (9.6-12.3); RED BLOOD COUNT 3.71 10*6/uL (4.50-5.90)
[2018-01-29 16:31] LABS: PLATELET COUNT AUTOMATED 70 10*3/uL (130-400)
[2018-01-29 16:59] LABS: PLATELET SUFFICIENCY LOW (NORMAL); TOTAL CELLS COUNTED 100 #CELLS
[2018-01-29 17:02] LABS: WHITE BLOOD COUNT 1.7 10*3/uL (4.8-10.8)
== END | disposition home or self-care (01) ==
LOC: TRNFUSION 00:42 → LAB 00:42 → TRNFUSION 09:00
PROVIDERS: Internal Medicine Hematology & Oncology
DX: C34.12 Malignant neoplasm of upper lobe, left bronchus or lung (principal)

== ENCOUNTER 2018-02-04 07:26 | Inpatient (IN) | payer OTHER ==
[2018-02-04] VITALS (12 sets, daily range): BP systolic 108–126; BP diastolic 48–66
[~2018-02-04] VITALS: Ht 160 cm; Wt 71.7 kg
--- NOTE | ~2018-02-04 | EKG ---
[place], [place] ELECTROCARDIOGRAM REPORT NAME: JONATHON BECERRA UNIT #: [id number] ROOM: 421 DOCTOR: ERICH KIRBY MD,KENNETH BIRTHDATE: [birth year] DOS: 02/04/2018 PROCEDURE: Electrocardiogram. PROCEDURE DATE AND TIME: 02/04/2018 at 08:03 a.m. FINDINGS: Sinus tachycardia noted, heart rate of 108 beats per minute, with a baseline artifact noted. KENNETH JUNG MD CM:EKGRPT:ELECTROCARDIOGRAM REPORT [id number] 1856 KENNETH KIRBY MD
--- NOTE | ~2018-02-04 | PR ---
[place], [place] PROGRESS NOTE NAME: JONATHON BECERRA [facility] #: [id number] UNIT #: [id number] ROOM: 421 DOCTOR: ROSALINDA AVENDANO MD BIRTHDATE: [birth year] DOS: 02/05/2018 SUBJECTIVE: The patient is not feeling good; though, he is awake, alert, and responsive. Denies any nausea, vomiting, or diarrhea. REVIEW OF SYSTEMS: HEENT: No trouble swallowing. No double vision. No loss of vision. No pain. ENT AND RESPIRATORY: No wheeze. No change in voice. No cough. No shortness of breath. No coughing up blood. No epistaxis. CARDIOLOGIC: No chest pain. No dizziness. No irregular heartbeat. No leg edema. No palpitations. No shortness of breath. HEMATOLOGIC AND LYMPH: No past transfusion. No fatigue. No loss of appetite. No easy bruising. GASTROENTEROLOGIC: No change in bowel habits. No vomiting blood. No abdominal cramping. No nausea. No vomiting. No diarrhea. No constipation. No blood in stool. MALE REPRODUCTIVE: No testicular pain. No penile discharge. MUSCULOSKELETAL: No back pain. No muscle pain or weakness. No tingling/numbness. UROLOGIC: No pain with urination. No difficulty urinating. No frequent urination. NEUROLOGIC: No burning pain in feet. No trouble with coordination. No loss of consciousness. No headache. No tingling/numbness. No memory loss. PHYSICAL EXAMINATION: GENERAL: A pleasant gentleman in no apparent distress. His is at the bedside. VITAL SIGNS: Blood pressure is 170/56, pulse 106, and temperature 97.2. HEENT: Normocephalic, atraumatic. NECK AND THYROID: Supple. No JVD, thyromegaly, or lymphadenopathy. HEART: Normal S1, S2. Regular rate and rhythm. LUNGS: Clear to auscultation and percussion. ABDOMEN: Soft. Nontender, nondistended. Bowel sounds present. EXTREMITIES: Normal ROM. No clubbing. No edema. LABORATORY DATA: Sodium 134, potassium 2.6, chloride 96, and bicarbonate 28. White count is 0.4, hemoglobin 10.2, hematocrit 30.1, and platelet count of 34,000. ASSESSMENT: 1. Nonsmall cell lung cancer, stage 4. 2. Pancytopenia secondary to chemotherapy. 3. Possible sepsis. PLAN: The patient will start on growth factors and transfusion of platelets and packed RBC on p.r.n. basis. The patient does not want anything done and everything done once probably hospice. We will discuss with Dr. Avitia about it and can go to his wish. [place], [place] PROGRESS NOTE NAME: JONATHON BECERRA UNIT #: [id number] ROOM: 421 DOCTOR: ROSALINDA AVENDANO MD BIRTHDATE: [birth year] ROSALINDA AVENDANO MD CM:PNTRANS [id number] ROSALINDA AVENDANO MD 02/06/18 0531 interface
--- NOTE | ~2018-02-04 | PR ---
[place], [place] PROGRESS NOTE NAME: [facility] #[facility] [id number] UNIT #: [id number] ROOM: 421 DOCTOR: ROSALINDA AVENDANO MD BIRTHDATE: [birth year] DOS: 02/08/2018 SUBJECTIVE: The patient is awake, alert and responsive, but he does not want further treatment. He is going to jail under hospice. PHYSICAL EXAMINATION: VITAL SIGNS: Blood pressure is stable, he is afebrile. HEENT: Normocephalic, atraumatic NECK AND THYROID: Supple. No JVD, thyromegaly, or lymphadenopathy. HEART: Normal S1, S2. Regular rate and rhythm. LUNGS: Clear to auscultation and percussion. ABDOMEN: Soft. Nontender, nondistended. Bowel sounds present. EXTREMITIES: Normal ROM. No clubbing. No edema. LABORATORY DATA: White count 8.5, hemoglobin 11.4, hematocrit 34.8, platelet 105,000. ASSESSMENT: 1. Stage 4 nonsmall cell lung cancer. 2. Anemia of neoplastic disorder. 3. Thrombocytopenia. PLAN: White count is improved, growth factors have been stopped. The patient will be going to a jail with hospice discussed. ROSALINDA AVENDANO MD CM:PNTRANS [phone] [id number] ROSALINDA AVENDANO MD 02/08/182041 interface
--- NOTE | ~2018-02-04 | CON ---
[place], [place] REPORT OF CONSULTATION NAME: JONATHON BECERRA UNIT #: [id number] ROOM: 421 DOCTOR: SILVER SANTOSDUC J BIRTHDATE: [birth year] DOS: 02/04/2018 PALLIATIVE CONSULTATION NOTE HISTORY OF PRESENT ILLNESS: The patient is a 67-year-old gentleman with non-small cell carcinoma of the lungs stage 4. The patient underwent one chemotherapy by Dr. Myers, but he is refusing the second chemotherapy and wants to be kept comfortable only. Case discussed with the patient and his in good detail today. The patient would like to go home, but he still has to discuss the situation with his if she can take him home. The patient and are apparently agreeable to hospice care. Presently, the patient is here at the hospital for increased shortness of breath, acute over chronic respiratory failure and pneumonia with sepsis. The patient also has significant malnutrition and stage 4 decubitus ulcer on lower extremity. The patient is complaining of persisting shortness of breath, some abdominal pains. REVIEW OF SYSTEMS: LUNGS: Increased shortness of breath. GASTROINTESTINAL: No nausea, vomiting, diarrhea or constipation, but poor appetite. CARDIOVASCULAR: No chest pains or palpitations. PAST MEDICAL HISTORY: 1. Hyperlipidemia. 2. Metastatic stage IV non-small cell cancer of the lung, status post one dose of chemotherapy. 3. Pancytopenia related to chemotherapy. 4. Type 2 diabetes mellitus with hyperglycemia. 5. Previous history of ureteric stent. 6. Benign prostatic hyperplasia and urine retention history. 7. GERD and esophagitis. 8. Severe protein calorie malnutrition. FAMILY HISTORY: Noncontributory. SOCIAL HISTORY: The patient lives at home with his . Denies smoking cigarettes, alcohol and drug abuse. PRESENT MEDICATIONS: Flomax, vitamin D, Protonix, Lipitor, furosemide, prednisone, vancomycin intravenously, IV Zosyn, levofloxacin, temazepam, Vicodin. PHYSICAL EXAMINATION: GENERAL: Alert and oriented, looking uncomfortable with some shortness of breath, but in no visible distress, except for generalized weakness. VITAL SIGNS: Blood pressure 110/55, heart rate of 98 beats per minute, [place], [place] REPORT OF CONSULTATION NAME: JONATHON BECERRA UNIT #: [id number] ROOM: 421 DOCTOR: DUC SHEPPARD MD BIRTHDATE: [birth year] breathing 22 times per minute, temperature 98.8 degrees Fahrenheit. HEENT AND NECK: Extraocular movements are intact. Sclerae are anicteric. Oral mucosa is moist and clean. No obvious facial weakness. Neck is supple without any lymphadenopathy. No thyromegaly. No JVD. No carotid arterial bruits. LUNGS: On lung auscultation, patient had decreased breath sounds and expiratory wheezing all over. CARDIOVASCULAR SYSTEM: Heart rate is regular in rate and rhythm. S1 and S2 normally audible. No significant murmur or any other abnormal cardiac sounds. ABDOMEN: Some abdominal distention and generalized abdominal discomfort on palpation. EXTREMITIES: Without significant cyanosis or edema. Warm to touch. CENTRAL NERVOUS SYSTEM: Alert and oriented x 3. Cranial nerves II-XII are intact. Speech is normal. The patient is able to move all extremities. Normal muscle strength. Deep tendon reflexes are equal on both sides. Plantars were downgoing. IMPRESSION AND PLAN: 1. The patient with non-small cell adenocarcinoma of the lung stage 4, status post chemotherapy and pancytopenia, now does not want any more chemotherapy and wants hospice care at home. The patient and his to discuss discharge to home if his agrees versus nursing facility placement and hospice consult for end-of-life care. Case was discussed in detail with the patient and his who understand their options. The patient recommended DNR comfort care code status. 2. Severe protein calorie malnutrition. The patient recommended nutritional supplements like Ensure with every meal. 3. Type 2 diabetes mellitus. Blood sugar is monitored and treated. 4. Gastroesophageal reflux disease and esophagitis, presently asymptomatic. 5. Generalized weakness. The patient is working with Physical Therapy. Dr. Shahzad Avitia, thank you for asking me to see the patient. The patient is requesting hospice consult. We will follow the patient along with you. DUC SHEPPARD MD CM:CONSTR:REPORT OF CONSULTATION 1620 02/04/18 1935 interface
--- NOTE | ~2018-02-04 | CON ---
[place], [place] REPORT OF CONSULTATION NAME: JONATHON BECERRA [facility] #: [id number] UNIT #: [id number] ROOM: 421 DOCTOR: ERICH KIRBY MDKENNETH BIRTHDATE: [birth year] DOS: 02/05/2018 PULMONARY CONSULTATION, EVALUATION AND MANAGEMENT REQUESTING PHYSICIAN: The patient's consultation is requested by Dr. Fco Avitia. REASON FOR CONSULTATION: Assess the patient's current abnormal finding of the chest x-ray, possible pneumonia and other issues including pleural fluid. HISTORY OF PRESENT ILLNESS: This is a 67-year-old white male patient, who has been known with history of advanced non-small cell lung cancer, stage 4. The patient has been treated with chemotherapy. The first chemotherapy started with carboplatin and Gemzar on 01/30/2018. The patient has been admitted to the hospital because of that. The patient stated that he had developed significant severe shortness of breath and he received chemotherapy about 10 to 14 days ago in the office of Dr. Myers. He has been noted with shortness of breath, which was noted at rest. He was also noted pain in the left side of the chest as well. He denies symptoms of hemoptysis. The patient has been noted with recent hemoptysis and endobronchial lesion with the bronchoscopy on his earlier admission a few weeks ago. He has been noted with some cough and chest congestion. The patient also reported symptoms of fever and chills. He denies any symptoms of wheezing with the current symptoms. REVIEW OF SYSTEMS: CONSTITUTIONAL: The patient was noted to have symptoms of fatigue and tiredness at the present time. EYES: Denies any burning, redness or tenderness. EARS, NOSE, THROAT: Denies sore throat, hoarseness, otalgia, postnasal drainage or epistaxis. CARDIOVASCULAR: Denies angina pain or edema of the lower extremities. GASTROINTESTINAL: The patient was noted some symptoms of nausea, but no vomiting, abdominal pain, hematemesis, melena or hematochezia. GENITOURINARY: Denies dysuria, suprapubic pain or hematuria. MUSCULOSKELETAL: The patient was noted pain in the chest as the patient reported, but no other joint pains reported or any deformities. SKIN: Denies abnormal lesions or rashes. MUSCULOSKELETAL: Reported without any pain in the muscles. CENTRAL NERVOUS SYSTEM: General weakness and fatigue without any symptoms of seizures, diplopia, tingling sensation of the extremities. Remaining systems were reviewed of the patient, they were noted all negative. PAST MEDICAL HISTORY: Known with: 1. Advanced stage 4 non-small cell lung cancer, currently treated with only one chemotherapy administered at this time. 2. Hospitalization for acute hemoptysis in December 2017 without any recurrence. 3. History of gastroesophageal reflux disease. 4. Hyperlipidemia. [place], [place] REPORT OF CONSULTATION NAME: JONATHON BECERRA UNIT #: [id number] ROOM: 421 DOCTOR: ERICH KIRBY MD,KENNETH BIRTHDATE: [birth year] 5. Osteoarthritis. 6. Type 2 diabetes mellitus. 7. Nephrolithiasis. 8. Overall severe general debility. PAST SURGICAL HISTORY: 1. Past fiberoptic bronchoscopy in [facility] [place] and then bronchoscopy which was done in December 2017 noted with large endobronchial mass in the left lung endobronchial tree. 2. MediPort insertion. FAMILY HISTORY: Both parents have . Further history was unknown. MEDICATIONS: The current medications administered noted as use of Flomax, vitamin D, Protonix, Mucinex, atorvastatin, IV Solu-Medrol 60 mg q. 8 hours, Lasix 40 mg daily, DuoNeb q. 4 hours, subcutaneous injection of Leukine, IV vancomycin, Zosyn, Levaquin, and other medications. DRUG ALLERGIES: The patient was noted with no known drug allergies. PHYSICAL EXAMINATION: GENERAL: This is a 67-year-old white male patient who has been currently sitting on the chair. Height of 5 feet 2 inches, weight of 158 pounds, BMI 27. Appeared to be pale. VITAL SIGNS: Which have been recorded for the patient since admission as the highest respiratory rate of 48 on admission, currently noted at 20, temperature noted highest of 99 degree Fahrenheit. The heart rate noted as sinus tachycardia, 111 to 88 beats per minute, blood pressure 120/60 to 106/44. Pulse oxygen saturation on 2 liters nasal cannula was 95% saturation. HEENT: Alopecia partially related to chemotherapy. Head was atraumatic. Eyes nonicterus. Neck was supple. Oral mucosa was moist. No any lesions. CARDIOVASCULAR SYSTEM: S1, S2 audible. LUNGS: Noted with absent breath sounds in the left lung in the lower portion. Scattered wheezing was noted. ABDOMEN: Soft, nontender. EXTREMITIES: Without any acute edema. MUSCULOSKELETAL: Without any acute deformity. VISIBLE SKIN: No lesions or rashes. LABORATORY DATA: CBC yesterday for this patient, WBC count 0.4, hemoglobin 7.7, hematocrit 23.5, platelet count 12,000. CBC on 01/25/2018 for the patient, WBC count 1.7, hemoglobin 9.8, hematocrit 31.2, platelet count 70,000 as an outpatient. CMP yesterday in the Emergency Room, BUN 25, creatinine 1.33, glucose 183, sodium 132, potassium 3.2. The troponin 3 sets for the patient, which were cycled in the last 24 hours normal. CBC this morning after blood transfusion with 2 pack RBC, WBC count 0.4, hemoglobin 10.2, hematocrit 30.0, platelet count of 34,000. The patient was also given platelet transfusion as well because of thrombocytopenia. Chest x-ray, one view, the patient was noted with associated pleural fluid and area of atelectasis with previous mass lesion noted in the left lung. Right lung for the patient appeared to be normal. [place], [place] REPORT OF CONSULTATION NAME: OJNATHON BECERRA UNIT #: [id number] ROOM: 421 DO[facility] [birth year] IMPRESSION: 1. The patient has been currently known with history of advanced metastatic malignancy, metastasis to the bone originating from the lung as a non-small cell lung cancer with the first chemotherapy resulting in a very severe progressive pancytopenia. 2. Possibility of pneumonia in the patient's left lung cannot be excluded for this patient with current underlying abnormality of the lung mass. 3. Associated pleural fluid suspected in the left side needs to be further assessed. 4. The patient with overall severe debility as well secondary to undergoing acute illness. 5. Clinical assessment for severe protein-calorie malnutrition. 6. Acute exacerbation of chronic obstructive pulmonary disease secondary to the above. PLAN OF MANAGEMENT: I agree with the use of broad spectrum intravenous antibiotic and the infection has been isolated and treated accordingly. Bronchodilator will be continued. Ordered sputum for Gram stain culture. Monitor blood culture results. Palliative care for the patient with pain management to be continued for comfort. The patient was getting high dose of Solu-Medrol, which will be decreased to 40 mg b.i.d. as minimal wheezing is noted at this time. DVT prophylaxis with SCD could be done because of severe thrombocytopenia. Monitor lab for this patient closely otherwise. Additional nutritional support with nutrition supplements would be recommended. Supportive therapy, plan of management and other care. Avoid excessive diuretics. CT scan of the chest has been ordered without contrast for further assessment of current left chest pulmonary pathology to further consider any addition of changes in the treatment of the patient after that as necessary. The patient has been known with pleural fluid previously, at this time not sure if the patient's pleural fluid has enlarged or not. Whether the patient requires thoracentesis will be clearly decided after CT scan of the chest completion. Assessment management is done for the patient with the medical screener working with primary care physician, Dr. Fco Avitia today. Overall prognosis for the patient appears to be extremely poor with advanced lung malignancy and pancytopenia. Thank you for allowing me to participate in the care of this patient. KENNETH JUNG MD CM:CONSTR:REPORT OF CONSULTATION 1640 02/06/18 0522 interface
--- NOTE | ~2018-02-04 | PR ---
[place], [place] PROGRESS NOTE NAME: JONATHON BECERRA [facility] #: [id number] UNIT #: [id number] ROOM: 421 DOCTOR: ERICH KIRBY MD,KENNETH BIRTHDATE: [birth year] DOS: 02/06/2018 SUBJECTIVE: The patient noted comfortable at this time, resting were noted somewhat better than yesterday. Denies symptoms of chest pain or hemoptysis. Denies symptoms of nausea, vomiting, diarrhea or any abdominal pain at this time. Remaining systems were reviewed, they were noted all negative. OBJECTIVE: VITAL SIGNS: For the patient which were recorded showed the temperature noted as normal. The respiratory rate of the patient recorded as 20, heart rate of 107, blood pressure 105/54, pulse oxygen saturation of the patient was recorded as a 98% saturation on 2 liters nasal cannula. HEENT: Examination shows head was atraumatic. Eyes nonicterus. NECK: Supple. CARDIOVASCULAR: S1, S2 is audible. LUNGS: The patient noted decreased breath sounds, left-sided previously with occasional crackles. The wheezing for the patient noted scattered in the lungs bilaterally. ABDOMEN: Soft, nontender. Bowel sounds present. EXTREMITIES: Noted without any acute edema. MUSCULOSKELETAL SYMPTOMS: Without any acute deformities. CENTRAL NERVOUS SYSTEM: Cranial nerves 2-12 ____. No focal deficit. SKIN: With no visible lesions or rashes. LABORATORY DATA: CBC today: WBC count 1.2, hemoglobin 9.9, hematocrit 29.6, platelet count 51,000. CMP this morning of the patient, normal BUN and creatinine. Blood culture for the patient / bottles, aerobic taken in the Emergency noted with gram-positive cocci in pairs and clusters. IMPRESSION: 1. The patient who has been currently noted bacteremia with possibility of Staph or strep infection including Enterococcus remains in consideration. 2. Acute pancytopenia related to chemotherapy with advanced metastatic cancer of the lung. 3. Pleural fluid related to malignancy or pneumonia would be likely. 4. Pancytopenia has been noted, partial improvement previously with improvement of the platelet count for the patient, stable hemoglobin and hematocrit and improving white cell count. 5. Bacteremia. The patient with gram-positive cocci as well. 6. Type 2 diabetes mellitus, noted with better control ____ corticosteroid and acute exacerbation of chronic obstructive pulmonary disease. PLAN OF TREATMENT: Medical management changes will be done for the patient based on progression of the illness. Monitor culture results of the patient closely. Pleural fluid at this time will be monitored. No intervention will be needed. [place], [place] PROGRESS NOTE NAME: JONATHON BECERRA Jordon UNIT #: [id number] ROOM: [facility] DOCTOR: ERICH KIRBY MD,KENNETH BIRTHDATE: [birth year] KENNETH JUNG MD CM:PNTRANS [id number] KENNETH KIRBY MD 02/07/18 0242 interface
--- NOTE | ~2018-02-04 | PR ---
[place], [place] PROGRESS NOTE NAME: JONATHON BECERRA UNIT #: [id number] ROOM: 421 DOCTOR: KENNETH RIVERA MD BIRTHDATE: [birth year] DOS: 02/08/2018 SUBJECTIVE: The patient noted comfortable at this time, resting on the bed. He has been noted with reduction of the oral respiratory symptoms of shortness of breath. Denies symptoms of acute chest pain. Denies symptoms of abdominal pain. He was continued on intravenous antibiotic at the present time. The oxygen supplementation used by the patient is nasal cannula. OBJECTIVE: VITAL SIGNS: This morning, normal temperature, respiratory rate 18, heart rate 102, blood pressure 125/57. Pulse ox saturation on 2 liters nasal cannula 98% saturation recorded. HEENT: No acute change. NECK: Supple. CARDIOVASCULAR: S1, S2 audible. LUNGS: Noted decreased breath sounds in the lungs bilaterally, more on the left than the right side. ABDOMEN: Soft, nontender. EXTREMITIES: No acute edema. LABORATORY DATA: CBC noted normal WBC count today. Hemoglobin 11.4, platelet count 105,000. Blood culture of the patient was noticed Staphylococcus epidermidis. IMPRESSION: 1. The patient will be currently noted with resolving acute pneumonia clinically. 2. Pleural fluid left side, most likely related to underlying lung malignancy. 3. Staphylococcus epidermidis bacteremia by the contamination, unknown. 4. Resolution of the leukopenia completely with stable hemoglobin and hematocrit, improving, thrombocytopenia. PLAN OF MANAGEMENT: The patient has been getting antibiotic. Vancomycin trough level noted elevated on 02/06/2018 as 24.9. Requires adjustment of the vancomycin to be done by the pharmacy. Order a chest x-ray today to reassess pleural fluid and improvement in the pneumonia based on the findings of radiologically as well. Clinically, the patient has been showing progressive improvement and resolution of the acute respiratory symptoms. [place], [place] PROGRESS NOTE NAME: JONATHON BECERRA UNIT #: [id number] ROOM: 421 DOCTOR: KENNETH RIVERA MD BIRTHDATE: [birth year] KENNETH JUNG MD CM:PNTRANS [id number] KENNETH KIRBY MD 02/08/18 2311 interface
--- NOTE | ~2018-02-04 | CON ---
[place], [place] REPORT OF CONSULTATION NAME: JONATHON BECERRA [facility] #: [id number] UNIT #: [id number] ROOM: 421 DOCTOR: ROSALINDA AVENDANO MD BIRTHDATE: [birth year] DOS: 02/04/2018 HISTORY OF PRESENT ILLNESS: The patient is a pleasant 67-year-old gentleman with a history of stage 4 lung cancer, recently got his chemotherapy with carboplatin and Gemzar on 01/25/2018, he also short of breath, started complaining of dizziness, nausea, vomiting and subsequently admitted. On recent exam, he was found to be pancytopenic and consulted for further evaluation and management. PAST MEDICAL HISTORY: Metastatic stage 4 lung cancer, history of benign prostatic hyperplasia, O2 dependent, diabetic ulcer of the roberts, GERD, hemoptysis, hyponatremia, osteoarthritis, and type 2 diabetes. PAST SURGICAL HISTORY: Ureteric stent and status post PICC central line. SOCIAL HISTORY: No smoking, drinking, was a former smoker. FAMILY HISTORY: Father . Mother , unknown cause. ALLERGIES: No known allergies. MEDICATIONS: Albuterol, atorvastatin, vitamin D, furosemide, [place], metformin, Actos, Flomax as well as carboplatin and Gemzar, ____ Hytrin. REVIEW OF SYSTEMS CONSTITUTIONAL: No chills. No fatigue. No fever. No loss of appetite. No night sweats. No weakness. No weight loss. HEENT: No trouble swallowing. No loss of smell. No loss of hearing. No double vision. No pain. No discharge. ENT AND RESPIRATORY: No wheeze. No sore throat. No change in voice. No hearing loss. No nose bleed. No cough. No trouble breathing through nose. No shortness of breath. No coughing up blood. No epistaxis. CARDIOVASCULAR: No chest pain. No dizziness. No irregular heartbeat. No leg edema. No pain in legs while walking. No palpitations. No shortness of breath. DERMATOLOGIC: No acne. No hives. No laceration. No mole. No rash. ENDOCRINE: No cold intolerance. No diabetes. No fatigue. No hot flashes. No polydipsia. No polyuria. No urinating frequently. No weight loss. HEMATOLOGIC AND LYMPH: No fatigue. No easy bruising. GASTROENTEROLOGIC: No change in bowel habits. No indigestion. No frequent bloating. No vomiting blood. No abdominal cramping. No nausea. No heartburn. No vomiting. No abdominal pain. No dysphagia. No diarrhea. No constipation. No blood in stool. MALE REPRODUCTIVE: No testicular pain. No difficulty with erection. No diminished sexual drive. No penile discharge. MUSCULOSKELETAL: No back pain. No muscle pain or weakness. No neck pain. No tingling/numbness. No swelling/bruising. No osteoporosis treatment. OPTHALMOLOGIC: No double vision. No diminished vision. No loss of vision. UROLOGIC: No dysuria. No frequent nighttime urination. No pain with urination. No difficulty urinating. No blood in urine. No frequent urination. [place], [place] REPORT OF CONSULTATION NAME: JONATHON BECERRA UNIT #: [id number] ROOM: [facility] DOCTOR: ROSALINDA AVENDANO MD BIRTHDATE: [birth year] No urinary incontinence. NEUROLOGIC: No loss of sensation in specific body area. No vertigo. No burning pain in feet. No trouble with balance. No trouble with coordination. No loss of consciousness. No loss of feeling/power. No confusion. No headache. No tingling/numbness. PSYCHOLOGIC: No tinnitus. No headaches. No shortness of breath. No weight decrease. No nausea. No vomiting. No abdominal discomfort. No constipation. No diarrhea. No depression. No anxiety. PHYSICAL EXAMINATION: GENERAL: Pleasant gentleman in no apparent distress. VITAL SIGNS: Blood pressure 122/66, respiration 20, pulse 98, temperature 98.8. HEENT: Oral mucosa appears intact. The external ears are normal in appearance. Nares are patent without lesions, exudates, erythema, or inflammation. Tongue is symmetrical. Uvula is midline. NECK AND THYROID: Neck supple without palpable masses. Trachea is midline. No thyromegaly. No carotid bruit or JVD. BREASTS: Normal. Nipples unremarkable. No drainage. No lumps felt on either side. HEART: Normal S1, S2, without significant murmur, rub, or gallop. LUNGS: Clear to auscultation and percussion with good air entry bilaterally. The patient is breathing easily without the use of accessory muscles. Diaphragmatic excursions are intact. ABDOMEN: No costovertebral angle tenderness. Soft. No organomegaly or masses. Nontender. No hernias present. Liver and spleen are not palpable. LYMPHATIC: No adenopathy noted in the cervical, supraclavicular, axillary, or inguinal regions. NEUROLGIC: Nonfocal. Oriented to person, place, and time. MENTAL STATUS: Appropriate for mood and affect. PERIPHERAL PULSES: No varicosities. Femoral and pedal pulses are palpable. EXTREMITIES: Without cyanosis, clubbing, or edema. No gross anomalies. LABORATORY DATA: Sodium 132, potassium 3.2, chloride 95, bicarbonate 30, calcium 8.1. AST was 13, ALT 59. White count 0.4, hemoglobin 7.7, hematocrit 23.5, blood count 12,000. ASSESSMENT: 1. Metastatic lung cancer. 2. Left pleural effusion, left base secondary to malignancy. 3. Pancytopenia secondary to chemotherapy. PLAN: Neutropenic precautions, isolation, and start growth factors. We will also give platelets and packed RBC. Depending on the further intervention discussed, we will follow. Thanks for consulting and letting participate in the care of this interesting patient. [place], [place] REPORT OF CONSULTATION NAME: JONATHON BECERRA UNIT #: [id number] ROOM: 421 DOCTOR: ROSALINDA AVENDANO MD BIRTHDATE: [birth year] ROSALINDA AVENDANO MD CM:CONSTR:REPORT OF CONSULTATION 1509 02/04/18 1282 interface
[~2018-02-04 07:26] MED LIST changes: -LEVAQUIN750 M1 PO; -PREDNISONE10 MG PO
[2018-02-04 07:59] LABS: HEMATOCRIT 23.5 % (42.0-52.0); HEMOGLOBIN 7.7 g/dl (14.0-18.0); MEAN CELL VOLUME 79.7 fl (80.0-94.0); MEAN CORPUSCULAR HGB 26.1 pg (27.0-31.0); MEAN CORPUSCULAR HGB CONC 32.8 g/dl (33.0-37.0); RED BLOOD COUNT 2.95 10*6/uL (4.50-5.90); RED CELL DISTRI WIDTH 15.1 % (0-14.5)
[2018-02-04 08:14] LABS: ALBUMIN 2.2 gm/dl (3.1-4.5); ALKALINE PHOSPHATASE 59 U/L (45-117); BUN 25 mg/dl (7-24); CHLORIDE 95 mmol/L (98-107); CREATININE 1.33 mg/dL (0.70-1.30); LIPASE 38 U/L (73-393); POTASSIUM 3.2 mmol/L (3.5-5.1); SGOT/AST 9 IU/L (3-35); SGPT/ALT 13 U/L (12-78); SODIUM 132 mmol/L (136-145); TOTAL PROTEIN 6.6 gm/dL (6.4-8.2)
[2018-02-04 08:32] LABS: BASOPHILS 2 % (0-1); MICROCYTOSIS SLIGHT; PLATELET SUFFICIENCY LOW (NORMAL); TOTAL CELLS COUNTED 50 #CELLS
[2018-02-04 08:33] LABS: WHITE BLOOD COUNT 0.4 10*3/uL (4.8-10.8)
[2018-02-04 08:34] LABS: PLATELET COUNT AUTOMATED 12 10*3/uL (130-400)
[2018-02-04 11:54] LABS: ACT PARTIAL THROMBO TIME 26.6 SECONDS (20.8-31.5); INTERNATIONAL NORM RATIO 1.4 (2.0-3.5)
[2018-02-04 13:59] LABS: BILIRUBIN NEGATIVE (NEGATIVE); BLOOD NEGATIVE (NEGATIVE); CLARITY CLEAR (CLEAR); COLOR YELLOW (YELLOW); GLUCOSE NEGATIVE (NEGATIVE); KETONE NEGATIVE (NEGATIVE); LEUKO ESTERASE NEGATIVE (NEGATIVE); NITRITE NEGATIVE (NEGATIVE); PH 5.5 (5.0-9.0); SPECIFIC GRAVITY 1.015 (1.005-1.030); UROBILINOGEN 0.2 E.U./dl (0.2-1.0)
[2018-02-04 14:08] LABS: MUCOUS TRACE
[2018-02-05 00:10] VITALS: BP 106/44
[2018-02-05 00:30] VITALS: BP 120/45
[2018-02-05 07:15] LABS: MEAN CELL VOLUME 80.7 fl (80.0-94.0); MEAN CORPUSCULAR HGB 27.3 pg (27.0-31.0); MEAN CORPUSCULAR HGB CONC 33.9 g/dl (33.0-37.0); MEAN PLATELET VOLUME 9.6 fl (9.6-12.3); RED BLOOD COUNT 3.73 10*6/uL (4.50-5.90); RED CELL DISTRI WIDTH 14.4 % (0-14.5)
[2018-02-05 07:30] LABS: HEMATOCRIT 30.1 % (42.0-52.0); HEMOGLOBIN 10.2 g/dl (14.0-18.0); PLATELET COUNT AUTOMATED 34 10*3/uL (130-400)
[2018-02-05 07:42] LABS: CHLORIDE 96 mmol/L (98-107); POTASSIUM 2.6 mmol/L (3.5-5.1); SODIUM 134 mmol/L (136-145)
[2018-02-05 07:56] LABS: ALBUMIN 2.2 gm/dl (3.1-4.5); ALKALINE PHOSPHATASE 61 U/L (45-117); BUN 19 mg/dl (7-24); CREATININE 1.28 mg/dL (0.70-1.30); SGOT/AST 11 IU/L (3-35); SGPT/ALT 16 U/L (12-78); TOTAL PROTEIN 6.5 gm/dL (6.4-8.2)
[2018-02-05 08:00] VITALS: BP 120/60
[2018-02-05 08:06] LABS: BURR CELLS FEW; PLATELET SUFFICIENCY LOW (NORMAL); ROULEAUX SLIGHT; TOTAL CELLS COUNTED 50 #CELLS
[2018-02-05 08:08] LABS: WHITE BLOOD COUNT 0.4 10*3/uL (4.8-10.8)
[2018-02-05 08:10] LABS: PHOSPHOROUS 0.8 mg/dL (2.5-4.9)
[2018-02-05 12:00] VITALS: BP 117/56
[2018-02-05 14:58] LABS: BUN 18 mg/dl (7-24); CHLORIDE 98 mmol/L (98-107); CREATININE 1.41 mg/dL (0.70-1.30); PHOSPHOROUS 2.1 mg/dL (2.5-4.9); SODIUM 135 mmol/L (136-145)
[2018-02-05 15:46] LABS: PREALBUMIN 9 mg/dl (20-40)
[2018-02-05 16:00] VITALS: BP 116/55
[2018-02-05 20:00] VITALS: BP 105/49
[2018-02-06] VITALS: BP 98/53
[2018-02-06 06:52] LABS: HEMATOCRIT 29.6 % (42.0-52.0); HEMOGLOBIN 9.9 g/dl (14.0-18.0); MEAN CELL VOLUME 81.1 fl (80.0-94.0); MEAN CORPUSCULAR HGB 27.1 pg (27.0-31.0); MEAN CORPUSCULAR HGB CONC 33.4 g/dl (33.0-37.0); MEAN PLATELET VOLUME 11.8 fl (9.6-12.3); NUCLEATED RED BLOOD CELL 2.6 % (0.0-0.0); RED BLOOD COUNT 3.65 10*6/uL (4.50-5.90); RED CELL DISTRI WIDTH 15.1 % (0-14.5)
[2018-02-06 06:58] LABS: PLATELET COUNT AUTOMATED 51 10*3/uL (130-400)
[2018-02-06 07:10] LABS: ALBUMIN 1.9 gm/dl (3.1-4.5); ALKALINE PHOSPHATASE 51 U/L (45-117); BUN 17 mg/dl (7-24); CHLORIDE 103 mmol/L (98-107); CREATININE 1.13 mg/dL (0.70-1.30); PHOSPHOROUS 3.3 mg/dL (2.5-4.9); POTASSIUM 3.8 mmol/L (3.5-5.1); SGOT/AST 9 IU/L (3-35); SGPT/ALT 15 U/L (12-78); SODIUM 137 mmol/L (136-145); TOTAL PROTEIN 5.9 gm/dL (6.4-8.2)
[2018-02-06 07:50] LABS: WHITE BLOOD COUNT 1.2 10*3/uL (4.8-10.8)
[2018-02-06 07:54] LABS: BURR CELLS FEW; PLATELET SUFFICIENCY LOW (NORMAL); TOTAL CELLS COUNTED 55 #CELLS
[2018-02-06 08:00] VITALS: BP 114/63
[2018-02-06 12:00] VITALS: BP 109/70
[2018-02-06 16:00] VITALS: BP 105/54
[2018-02-06 20:00] VITALS: BP 107/39
[2018-02-07] VITALS: BP 100/60
[2018-02-07 07:35] LABS: HEMATOCRIT 34.8 % (42.0-52.0); HEMOGLOBIN 11.4 g/dl (14.0-18.0); MEAN CELL VOLUME 82.7 fl (80.0-94.0); MEAN CORPUSCULAR HGB 27.1 pg (27.0-31.0); MEAN CORPUSCULAR HGB CONC 32.8 g/dl (33.0-37.0); MEAN PLATELET VOLUME 11.5 fl (9.6-12.3); NUCLEATED RED BLOOD CELL 0.1 10*3/uL (0.0-0.0); NUCLEATED RED BLOOD CELL 1.3 % (0.0-0.0); RED BLOOD COUNT 4.21 10*6/uL (4.50-5.90); RED CELL DISTRI WIDTH 15.5 % (0-14.5); WHITE BLOOD COUNT 8.5 10*3/uL (4.8-10.8)
[2018-02-07 07:44] LABS: PLATELET COUNT AUTOMATED 105 10*3/uL (130-400)
[2018-02-07 08:00] VITALS: BP 103/61
[2018-02-07 08:40] LABS: TOTAL CELLS COUNTED 100 #CELLS
[2018-02-07 08:42] LABS: BLASTS 4 % (0-0); PLASMA CELL 1 % (0-0); PLATELET SUFFICIENCY LOW (NORMAL)
[2018-02-07 12:00] VITALS: BP 96/66
[2018-02-07 16:15] VITALS: BP 103/60
[2018-02-07 20:00] VITALS: BP 104/72
[2018-02-08] VITALS: BP 108/58
[2018-02-08 06:50] LABS: HEMATOCRIT 32.4 % (42.0-52.0); HEMOGLOBIN 10.5 g/dl (14.0-18.0); MEAN CELL VOLUME 84.8 fl (80.0-94.0); MEAN CORPUSCULAR HGB 27.5 pg (27.0-31.0); MEAN CORPUSCULAR HGB CONC 32.4 g/dl (33.0-37.0); MEAN PLATELET VOLUME 10.3 fl (9.6-12.3); NUCLEATED RED BLOOD CELL 0.1 10*3/uL (0.0-0.0); NUCLEATED RED BLOOD CELL 0.4 % (0.0-0.0); PLATELET COUNT AUTOMATED 123 10*3/uL (130-400); RED BLOOD COUNT 3.82 10*6/uL (4.50-5.90); RED CELL DISTRI WIDTH 15.8 % (0-14.5); WHITE BLOOD COUNT 17.5 10*3/uL (4.8-10.8)
[2018-02-08 07:30] LABS: ATYPICAL LYMPHS 1 % (0-0); TOTAL CELLS COUNTED 100 #CELLS
[2018-02-08 07:32] LABS: PLATELET SUFFICIENCY LOW (NORMAL); POLYCHROMASIA SLIGHT
[2018-02-08 08:00] VITALS: BP 125/57
[2018-02-08 12:00] VITALS: BP 114/55
[2018-02-08] MEDS ORDERED: LEVAQUIN750 M1 PO (14:05)
[2018-02-08] MEDS ORDERED: PREDNISONE10 MG PO (14:05)
[2018-02-08 16:00] VITALS: BP 88/46
== END 2018-02-08 17:05 | DRG 871 ==
LOC: ED 07:26 → 4E 09:23 → EDHOLD 09:23 → 4E 09:30
PROVIDERS: Emergency Medicine; Internal Medicine; Internal Medicine Hematology & Oncology; Student in an Organized Health Care Education/Training Program
PROC: 30233R1 Transfusion of Nonautologous Platelets into Peripheral Vein, Percutaneous Approach (ICD-10-PCS; principal; 2018-02-04)
PROC: 30233N1 Transfusion of Nonautologous Red Blood Cells into Peripheral Vein, Percutaneous Approach (ICD-10-PCS; 2018-02-04)
DX: A41.9 Sepsis, unspecified organism (principal); J18.9 Pneumonia, unspecified organism; J96.00 Acute respiratory failure, unspecified whether with hypoxia or hypercapnia; N17.0 Acute kidney failure with tubular necrosis; E43 Unspecified severe protein-calorie malnutrition; D61.818 Other pancytopenia; D61.810 Antineoplastic chemotherapy induced pancytopenia; G93.41 Metabolic encephalopathy; J90 Pleural effusion, not elsewhere classified; L89.894 Pressure ulcer of other site, stage 4; L89.324 Pressure ulcer of left buttock, stage 4; C79.9 Secondary malignant neoplasm of unspecified site; R04.2 Hemoptysis; K92.2 Gastrointestinal hemorrhage, unspecified; E87.1 Hypo-osmolality and hyponatremia; C34.92 Malignant neoplasm of unspecified part of left bronchus or lung; R65.20 Severe sepsis without septic shock; Z66 Do not resuscitate; E87.6 Hypokalemia; E83.42 Hypomagnesemia; R53.81 Other malaise; Z91.19 Patient's noncompliance with other medical treatment and regimen; E87.8 Other disorders of electrolyte and fluid balance, not elsewhere classified; E11.65 Type 2 diabetes mellitus with hyperglycemia; T45.1X5A Adverse effect of antineoplastic and immunosuppressive drugs, initial encounter; Z51.5 Encounter for palliative care; E66.3 Overweight; D63.0 Anemia in neoplastic disease; R33.9 Retention of urine, unspecified; K59.00 Constipation, unspecified; D46.9 Myelodysplastic syndrome, unspecified; K21.9 Gastro-esophageal reflux disease without esophagitis; M19.90 Unspecified osteoarthritis, unspecified site; E78.5 Hyperlipidemia, unspecified; N40.0 Benign prostatic hyperplasia without lower urinary tract symptoms; E53.8 Deficiency of other specified B group vitamins; Z99.81 Dependence on supplemental oxygen; Z68.27 Body mass index [BMI] 27.0-27.9, adult; Y92.89 Other specified places as the place of occurrence of the external cause; Z87.891 Personal history of nicotine dependence; Z79.51 Long term (current) use of inhaled steroids; Z79.84 Long term (current) use of oral hypoglycemic drugs; Z79.899 Other long term (current) drug therapy